=== PATIENT | female | born 1975 | race Caucasian/White ===

== ENCOUNTER 2016-06-28 19:16 | Emergency (ER) | payer OTHER ==
[2016-06-28 19:38] VITALS: BP 143/94
[2016-06-28] MEDS ORDERED: CYCLOBENZAPRINE HCL 10 MG TABLET PO ONE (21:20)
[2016-06-28] MEDS ORDERED: KETOROLAC TROMETHAMINE 60 MG/2 ML VIAL IM ONE ×2 (21:20→21:25)
[2016-06-28] MEDS ORDERED: CYCLOBENZAPRINE HCL 10 MG TABLET ONE (21:25)
--- NOTE | 2016-06-28 21:33 | ERNOTE ---
Lower Extremity HPI - Narrative Date of Service: 06/28/16 - General Lower Extremities Pain: foot: right Time Seen by Provider: 06/28/16 21:11 Source: patient Exam Limitations: no limitations - Immun/Allergies/Home Medications Immunizations: IMMUNIZATION HX Immunizations Up to Date Yes History of Influenza Vaccine No Hx Pneumococcal Vaccination No Allergies/Adverse Reactions: Allergies Allergy/AdvReac Type Severity Reaction Status Date / Time penicillin G Allergy Mild diarrhea, Verified 06/28/16 19:38 rash Tetanus Vaccines & Toxoid Allergy Verified 06/28/16 19:38 Home Medications: HOME MEDICATIONS Diclofenac Sodium 75 mg PO BID 03/07/14 [Last Taken Unknown] ALPRAZolam [Xanax] 1 mg PO TID PRN 09/03/14 [Last Taken Unknown] Cyclobenzaprine HCl [Flexeril] 10 mg PO TID 09/04/14 [Last Taken Unknown] Vit B Comp & C/Calcium Carb [Gnp B-Complex Tablet] 1 each PO DAILY 09/04/14 [ Last Taken Unknown] Benztropine Mesylate [Cogentin] 1 mg PO HS 09/06/14 [Last Taken Unknown] Hydrocodone/Acetaminophen [Hydrocodon-Acetaminoph 7.5-325] 1 each PO BID [Last Taken Unknown] Lurasidone HCl [Latuda] 60 mg PO DAILY 09/06/14 [Last Taken Unknown] Methylphenidate HCl [Concerta] 36 mg PO DAILY 09/06/14 [Last Taken Unknown] Cyclobenzaprine HCl [Flexeril] 10 mg PO TID PRN #30 tab 06/28/16 [Last Taken Unknown] Naproxen [Naprosyn] 500 mg PO BID PRN #60 tab 06/28/16 [Last Taken Unknown] - History of Present Illness Narrative: Pt. comes in with c/o R foot pain after tripping over a baby gate this morning. Pt. states that she wore a neighbors cam boot while at work but the pain worsened and is now unbearable. Pt. denies any SOB, CP, NVD, numbness or tingling. Review of Systems - Review of Systems Constitutional: Present: no symptoms reported. Absent: recent illness, fever, chills, fatigue, malaise EYE: Present: no symptoms reported ENT: Present: no symptoms reported Respiratory: Present: no symptoms reported. Absent: shortness of breath, cough , wheezing Cardiology: Present: no symptoms reported. Absent: chest pain, palpitations, edema Gastrointestinal/Abdominal: Present: no symptoms reported. Absent: nausea, vomiting, diarrhea, abdominal pain Genitourinary: Present: no symptoms reported Musculoskeletal: Present: joint pain - R foot Skin: Present: no symptoms reported. Absent: rash, change in color Neurological: Present: no symptoms reported. Absent: headache, dizziness/light- headedness, numbness, tingling All Other Systems: All systems neg except as marked - Patient's Past Medical History Patient History - Medical: Depression Patient History - Cardiac/Respiratory: Deep Vein Thrombosis - left leg 1999 Patient History - Cancer: No Hx of Cancer Patient History - Surgical Procedures: Cholecystectomy, , Tubal Ligation LMP (females 10-50): 3 weeks - Family History Mother Family History - Medical: Anxiety - Social History Living Situations: home Smoking Status: Current every day smoker Patient requests Smoking Cessation Consult: No Initiate information on Smoking Cessation: No Alcohol Use: none Drug Use: none Physical Exam - Physical Exam General Appearance: Present: wd/wn, alert, no apparent distress Eye Exam: Normal inspection: bilateral, PERRL: bilateral, EOMI: bilateral Neck: Absent: lymphadenopathy (R), lymphadenopathy (L) Respiratory: Present: no respiratory distress, normal breath sounds, no accessory muscle use, chest nontender, lungs clear Cardiovascular/Chest: Present: regular rate, rhythm, no murmur, normal peripheral pulses Back Exam: Present: normal inspection Extremity Exam: Present: decreased range of motion, joint swelling, other - R dorsal and lateral foot tenderness Neurological Exam: Present: alert, oriented, normal mood/affect, no motor/ sensory deficits Skin Exam: Present: normal color, warm/dry. Absent: pallor, skin rash ED Progress - Vital Signs Patient's Vital Signs:: I have reviewed the patient's vital signs. Vital Signs: Vital Signs 06/28/16 19:34 Temperature 36.4 C L Pulse Rate 108 H Respiratory 20 Rate Blood Pressure 143/94 O2 Sat by Pulse 99 Oximetry - X-Ray X-Ray #1 X-Ray: foot Interpretation: Interp. by me X-ray Comments: no fracture bony island noted at area of pain - Progress/Reassessment Chief Complaint: Lower Extremity Pain/ Injury Departure Clinical Impression: Foot tendinitis - Departure Disposition: Home self-care Condition: Good Instructions: Tendon Injury Additional Instructions: Please call orthopedics office in the morning and wear walking boot at all times and keep foot elevated as much as possible. Referrals: Andree Groves FNP [Primary Care Provider] - Marcello Reid PAC [[facility]] - Prescriptions: Cyclobenzaprine HCl [Flexeril] 10 mg PO TID PRN #30 tab PRN Reason: MUSCLE SPASMS Naproxen [Naprosyn] 500 mg PO BID PRN #60 tab PRN Reason: Pain
== END 2016-06-28 22:01 | disposition home or self-care (01) ==
LOC: ER 19:16
DX: M77.51 Other enthesopathy of right foot and ankle (principal); Z90.49 Acquired absence of other specified parts of digestive tract; W22.8XXA Striking against or struck by other objects, initial encounter; F17.210 Nicotine dependence, cigarettes, uncomplicated

== ENCOUNTER 2017-01-14 13:43 | Emergency (ER) | payer OTHER ==
[2017-01-14] MEDS ORDERED: NITROGLYCERIN 0.4 MG/TAB BTL SL PRN (13:54)
[2017-01-14] MEDS ORDERED: ASPIRIN 81 MG TAB.CHEW PO ONE (13:54)
[2017-01-14] MEDS ORDERED: ASPIRIN 81 MG TAB.CHEW ONE (13:59)
--- NOTE | 2017-01-14 14:06 | ERNOTE ---
Chest Pain/Cardiac HPI Date of Service: 01/14/17 Time Seen by Provider: 01/14/17 13:53 Source: patient Exam Limitations: no limitations Immunizations: IMMUNIZATION HX Immunizations Up to Date Yes History of Influenza Vaccine No Hx Pneumococcal Vaccination No Allergies/Adverse Reactions: Allergies penicillin G Allergy (Mild, Verified 01/14/17 13:57) diarrhea, rash Tetanus Vaccines and Toxoid [Tetanus Vaccines & Toxoid] Allergy (Verified 13:57) mom told patient she was allergic to when she was a kid. Home Medications: HOME MEDICATIONS Diclofenac Sodium 75 mg PO BID 03/07/14 [Last Taken Unknown] Hydrocodone/Acetaminophen [Hydrocodon-Acetaminoph 7.5-325] 1 each PO BID [Last Taken Unknown] Cyclobenzaprine HCl [Flexeril] 10 mg PO TID PRN #30 tab 06/28/16 [Last Taken Unknown] Adderall 10 mg Tablet 09/07/16 [Last Taken Unknown] Omeprazole 09/07/16 [Last Taken Unknown] Sertraline HCl [Zoloft] 25 mg PO DAILY #30 tablet 01/14/17 [Last Taken Unknown] Narrative: Pt. comes in with c/o L chest, arm, and shoulder pain intermittently for three weeks. Pt. has anxiety and so she thought that this was related but when she saw her pain specialist yesterday she had palpitation and an irregular heart beat and was told that the anxiety that she verma a history of could be putting a strain on her heart so she wants to make sure that the pain is not related to her heart. Pt. sees a pain specialist for chronic back pain and is not taking any anxiolytics or antidepressants. Review of Systems - Review of Systems Constitutional: Present: no symptoms reported. Absent: recent illness, fever, chills, weakness, fatigue EYE: Present: no symptoms reported ENT: Present: no symptoms reported Respiratory: Present: no symptoms reported. Absent: shortness of breath, cough , wheezing Cardiology: Present: chest pain. Absent: palpitations, edema Gastrointestinal/Abdominal: Present: no symptoms reported. Absent: nausea, vomiting, diarrhea, abdominal pain Genitourinary: Present: no symptoms reported Musculoskeletal: Present: no symptoms reported. Absent: back pain, joint pain Neurological: Present: anxiety. Absent: dizziness/light-headedness, weakness, numbness Endocrine: Present: no symptoms reported Hematologic/Lymphatic: Present: no symptoms reported All Other Systems: All systems neg except as marked - Patient's Past Medical History Patient History - Medical: Depression Patient History - Cardiac/Respiratory: No pertinent hx Patient History - Cancer: No Hx of Cancer Patient History - Surgical Procedures: Cholecystectomy, , Tubal Ligation Patient History - Other: None - Family History Mother Family History - Medical: Anxiety - Social History Living Situations: home Psych History: No pertinent hx Alcohol Use: none Drug Use: none - Immunizations Immunizations Up to Date: Yes Hx Pneumococcal Vaccination: No History of Influenza Vaccine: No Physical Exam - Physical Exam General Appearance: Present: wd/wn, alert, no apparent distress Head Exam: Present: normal inspection, no evidence of injury, no tenderness w palpation Ears, Nose, Throat: Present: normal ENT inspection, normal pharynx Neck: Present: normal inspection, nontender. Absent: lymphadenopathy (R), lymphadenopathy (L) Respiratory: Present: no respiratory distress, normal breath sounds, no accessory muscle use, chest nontender, lungs clear Cardiovascular/Chest: Present: regular rate, rhythm, no murmur, normal peripheral pulses Gastrointestinal/Abdominal: Present: normal bowel sounds, nontender, nondistended, soft, no organomegaly Back Exam: Present: normal inspection, normal range of motion, no CVA tenderness , no vertebral tenderness Extremity Exam: Present: normal inspection, non-tender, normal range of motion, no edema Neurological Exam: Present: alert, oriented, normal mood/affect, no motor/ sensory deficits, christmas tree grower II-XII nml as tested, normal cerebellar test Skin Exam: Present: normal color, warm/dry. Absent: pallor, skin rash ED Progress - Results and Orders Patient's Lab Results:: I have reviewed the patient's lab results. - Vital Signs Patient's Vital Signs:: I have reviewed the patient's vital signs. - EKG EKG: NSR EKG read: Reviewed by me EKG Comments: Interp by Dr Courtney - X-Ray X-Ray #1 X-Ray: chest Interpretation: Reviewed by me X-ray Comments: No acute cardiopulmonary abnormality Departure - Departure Clinical Impression: Anxiety Disposition: Home self-care Condition: Good Instructions: Panic Attacks, [id number] Additional Instructions: Please start on Zoloft 25 mg today. and folow up with primary provider in 2-3 days. Referrals: Andree Groves FNP [Primary Care Provider] - Prescriptions: Sertraline HCl [Zoloft] 25 mg PO DAILY #30 tablet
[2017-01-14 14:11] LABS: Hematocrit 39.4 % (37.0-47.0); Hemoglobin 13.5 gm/dL (12.5-16.0); Mean Cell Volume 86.4 fl (78-100); Mean Corpuscular Hemoglobin 29.6 pg (27-31); Mean Corpuscular Hgb Conc 34.3 g/dl (32-36); Neutrophil # 6.6 K/mm3 (1.3-6.0); Neutrophil % 65.3 % (42-75.0); Platelet Count 309 K/mm3 (150-450); Red Blood Count 4.56 M/mm3 (4.2-5.4); Red Cell Distribution Width 12.3 % (11.5-14.0); White Blood Count 10.1 K/mm3 (4.0-10.5)
[2017-01-14 14:23] LABS: Prothrombin Time (Patient) 10.3 Seconds (9.4-11.4)
[2017-01-14 14:27] LABS: INR 0.99 INR (0.90-1.10); Partial Thrombolplastin Time 27.4 Seconds (24-32)
[2017-01-14 14:30] LABS: Troponin I Less than 0.017 ng/ml (0.00-0.10)
[2017-01-14 14:33] LABS: ALT 26 U/L (19-67); AST 13 U/L (0-48); Albumin * 3.7 gm/dl (3.4-5.0); Alkaline Phosphatase * 27 U/L (50-170); Anion Gap 16.5 mmol/L (6.8-13.8); BUN/Creatinine Ratio 11.8 (9.0-21.6); Bilirubin, Total 0.2 mg/dL (0.0-1.1); Blood Urea Nitrogen 9 mg/dL (3-23); Ca. Corrected For Albumin 8.9 mg/dL (8.4-10.2); Carbon Dioxide 23.5 mmol/L (24-32.6); Chloride 103 mmol/L (97-106); Glucose * 103 mg/dL (70-110); Sodium 139 mmol/L (132-142); T4 Free * 0.95 ng/dL (0.76-1.46); TSH * 2.206 uIU/mL (0.358-3.74); Total Protein 7.1 gm/dL (6.2-8.2)
[2017-01-14 14:59] VITALS: BP 130/30
== END 2017-01-14 14:59 | disposition home or self-care (01) ==
LOC: ER 13:43
DX: F41.9 Anxiety disorder, unspecified (principal)